=== PATIENT | female | born 1945 | race Caucasian/White ===

== ENCOUNTER 2016-10-16 21:49 | Emergency (ER) | payer MEDICARE, OTHER ==
--- NOTE | 2016-10-17 19:04 | ER ---
ADMIT: 10/16/2016 RM/LOC: ER [facility] MR#: [id number] [place], [place] [id number] SAMANTHA FUENTES [address] [place] [address] Emergency Room Report SEX: F AGE: 71 : 1945 DATE: 10/16/2016 The patient is a 71-year-old female, with 2-day history of left posterior, left scapular pain, made worse with left lateral neck movement. Denies any prior history of radiculopathy. Exam remarkable for nontoxic, acutely uncomfortable afebrile female, decreased range of motion of neck. 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 MRI ordered. The patient given Toradol, Dilaudid, Reglan with improvement. Home with prednisone 40 mg taper over 12 days; hydrocodone 5/325 mg as needed, #30, prescription for 5 days. Follow up with Dr. Valle after MRI. Shon Jaeger MD/ xiao JOB #: [id number] CC: Shon Jaeger MD, Attending Physician Atul Valle MD, Family Physician Atul Valle MD
== END 2016-10-17 00:10 | disposition home or self-care (01) ==
LOC: ER 21:49
DX: M54.12 Radiculopathy, cervical region (principal); I12.9 Hypertensive chronic kidney disease with stage 1 through stage 4 chronic kidney disease, or unspecified chronic kidney disease; N18.9 Chronic kidney disease, unspecified; Z86.73 Personal history of transient ischemic attack (TIA), and cerebral infarction without residual deficits; Z88.6 Allergy status to analgesic agent; Z79.899 Other long term (current) drug therapy; Z79.82 Long term (current) use of aspirin

== ENCOUNTER → 2016-10-20 | Outpatient (CLI) | payer MEDICARE, OTHER | END | disposition home or self-care (01) | LOC: RAD.S 07:05 | DX: M54.12 Radiculopathy, cervical region (principal); M50.10 Cervical disc disorder with radiculopathy, unspecified cervical region; M47.22 Other spondylosis with radiculopathy, cervical region; M48.02 Spinal stenosis, cervical region ==